=== PATIENT | female | born 1955 | race Caucasian/White ===

== ENCOUNTER → 2023-10-20 11:06 | Outpatient (REF) | payer OTHER, SELFPAY | LOC: PAVMRI 11:06 | PROVIDERS: ATTENDING PHYSICIAN Psychiatry & Neurology Neurology; FAMILY PHYSICIAN Emergency Medicine | DX: R26.2 Difficulty in walking, not elsewhere classified (principal) | CPT/HCPCS: 70551 ==

== ENCOUNTER → 2024-01-11 07:15 | Outpatient (REF) | payer OTHER, SELFPAY | LOC: EMG 07:15 | PROVIDERS: ATTENDING PHYSICIAN Psychiatry & Neurology Neurology; FAMILY PHYSICIAN Emergency Medicine | DX: R25.2 Cramp and spasm (principal) | CPT/HCPCS: 95886; 95911 ==

== ENCOUNTER → 2024-02-20 07:36 | Outpatient (REF) | payer OTHER, SELFPAY | LOC: MRI 3T 07:36 | PROVIDERS: ATTENDING PHYSICIAN Psychiatry & Neurology Neurology; FAMILY PHYSICIAN Emergency Medicine | DX: R26.2 Difficulty in walking, not elsewhere classified (principal); M54.12 Radiculopathy, cervical region | CPT/HCPCS: 72156; A9575 ==

== ENCOUNTER 2024-09-04 06:15 | Outpatient (RCR) | payer OTHER, SELFPAY | END 2024-09-04 23:59 | disposition home or self-care (01) | LOC: RPT 06:15 | PROVIDERS: ATTENDING PHYSICIAN Psychiatry & Neurology Neurology; FAMILY PHYSICIAN Emergency Medicine | DX: R26.2 Difficulty in walking, not elsewhere classified (principal); Z73.6 Limitation of activities due to disability; R42 Dizziness and giddiness; R20.2 Paresthesia of skin; R20.0 Anesthesia of skin; R26.89 Other abnormalities of gait and mobility; M62.81 Muscle weakness (generalized); Z87.820 Personal history of traumatic brain injury; R29.6 Repeated falls | CPT/HCPCS: 97110; 97112; 97163 ==

== ENCOUNTER 2024-09-09 06:29 | Outpatient (RCR) | payer OTHER, SELFPAY | END 2024-09-09 23:59 | disposition home or self-care (01) | LOC: RPT 06:29 | PROVIDERS: ATTENDING PHYSICIAN Psychiatry & Neurology Neurology; FAMILY PHYSICIAN Emergency Medicine | DX: R26.2 Difficulty in walking, not elsewhere classified (principal); R42 Dizziness and giddiness; R20.2 Paresthesia of skin; R20.0 Anesthesia of skin; R26.89 Other abnormalities of gait and mobility; Z73.6 Limitation of activities due to disability; M62.81 Muscle weakness (generalized); Z87.820 Personal history of traumatic brain injury; R29.6 Repeated falls | CPT/HCPCS: 97110; 97112 ==

== ENCOUNTER → 2024-12-02 11:28 | Outpatient (REF) | payer OTHER, SELFPAY | LOC: RAD 11:28 | PROVIDERS: ATTENDING PHYSICIAN Family Medicine | DX: R07.81 Pleurodynia (principal); R22.42 Localized swelling, mass and lump, left lower limb | CPT/HCPCS: 71101; 73590; 73610 ==

== ENCOUNTER → 2024-12-24 06:36 | Outpatient (REF) | payer OTHER, SELFPAY | LOC: MRI 3T 06:36 | PROVIDERS: ATTENDING PHYSICIAN Nurse Practitioner Adult Health; FAMILY PHYSICIAN Emergency Medicine | DX: R26.2 Difficulty in walking, not elsewhere classified (principal); R90.89 Other abnormal findings on diagnostic imaging of central nervous system | CPT/HCPCS: 70551 ==

== ENCOUNTER → 2025-02-08 06:56 | Outpatient (REF) | payer OTHER, SELFPAY | LOC: PAVMRI 06:56 | PROVIDERS: ATTENDING PHYSICIAN Nurse Practitioner Adult Health; FAMILY PHYSICIAN Emergency Medicine | DX: R26.2 Difficulty in walking, not elsewhere classified (principal); G95.20 Unspecified cord compression | CPT/HCPCS: 72141 ==